=== PATIENT | male | born 1950 | race African-American/Black ===

== ENCOUNTER 2017-02-05 08:41 | Outpatient (CLI) | payer MEDICARE, MEDICAID ==
--- NOTE | 2017-02-05 09:44 | CT ---
CT LUMBAR SPINE: HISTORY: Lumbar radiculopathy, low back pain. History of prostate cancer. FINDINGS: Axial images are obtained with coronal and sagittal reconstructions. T11-12, T12-L1: Unremarkable. L1-2: There is mild facet hypertrophy. No significant degree of central or neural foraminal narrowi ng is seen. L2-3: Facet and ligamentum flavum hypertrophy is seen. The central canal and neural foramen are pat ent. No evidence of disk herniation seen. L3-4: Congenitally short pedicles are seen at this level. There is bilateral facet and ligamentum f lavum hypertrophy resulting in a moderate degree of central and lateral recess stenosis. L4-5: Disk desiccation is seen. There is a broad-based disk bulge with bilateral facet and ligament um flavum hypertrophy resulting in severe L4-5 central and lateral recess stenosis. Mild to moderate bilateral neural foraminal narrowing is seen. L5-S1: Vacuum disk changes seen at this level. There is a broad-based disk bulge. Central canal de monstrates a minimal but not significant degree of stenosis. Bilateral facet hypertrophy results in mild bilateral neural foraminal narrowing. IMPRESSION: L4-5 and L5-S1 broad-based disk bulges with the most significant degree of stenosis appearing to be a t the L3-4 and L4-5 levels. POS: [facility]
== END 2017-02-05 08:42 | disposition home or self-care (01) ==
LOC: CT 08:41
PROVIDERS: ATTEND Nurse Practitioner Family
DX: M51.16 Intervertebral disc disorders with radiculopathy, lumbar region (principal); M48.061 Spinal stenosis, lumbar region without neurogenic claudication
CPT/HCPCS: 72131

== ENCOUNTER 2017-02-08 19:13 | Emergency (ER) | payer MEDICARE, MEDICAID ==
[2017-02-08 19:59] LABS: #Monocytes 0.6 thou/uL (0.11-0.59); #Neutrophils 3.4 thou/uL (1.40-6.50); %Basophils 0.7 % (0.0-1.0); %Eosinophils 0.9 % (0.0-10.0); %Lymphocytes 19.4 % (21.0-51.0); %Monocytes 12.5 % (0.0-10.0); Hematocrit 36.1 % (42.0-52.0); Mean Platelet Volume 8.9 fL (7.4-10.4); Red Blood Cell (RBC) Count 4.41 mill/uL (4.70-6.10); White Blood Cell (WBC) Count 5.1 thou/uL (4.8-10.8)
[2017-02-08 20:16] LABS: ALT (SGPT) 13 U/L (8-55); AST (SGOT) 14 U/L (5-34); Alkaline Phosphatase 119 U/L (40-150); Anion Gap 11 mmol/L (10-20); BUN (Urea Nitrogen) 8 mg/dL (8.4-25.7); Bilirubin, Total 0.3 mg/dL (0.2-1.2); Calc. Creatinine Clearance 0 mL/min (70-130); Calcium 9.3 mg/dL (7.8-10.44); Carbon Dioxide 30 mmol/L (23-31); Chloride 102 mmol/L (98-107); Estimated GFR-MDRD Greater than 90; Globulin 3.5 g/dL (2.4-3.5); Protein, Total 7.2 g/dL (5.8-8.1)
--- NOTE | 2017-02-08 20:36 | ULT ---
RIGHT LOWER EXTREMITY VENOUS DOPPLER ULTRASOUND: 02/08/17 COMPARISON: None. HISTORY: Right leg pain, swelling, assess for DVT. TECHNIQUE: Multiplanar saxena scale sonographic imaging of the venous structures of the right lower extremity obta ined with color flow and spectral analysis. FINDINGS: Right common femoral vein, greater saphenous vein, profunda femoral vein, femoral vein, popliteal vei n, and posterior tibial vein are patent. There is normal blood flow, augmentation and compression wit hin the deep venous system of the right lower extremity. No evidence for right lower extremity DVT. IMPRESSION: No evidence for deep venous thrombosis of the right lower extremity. POS: [facility]
== END 2017-02-08 21:20 | disposition home or self-care (01) ==
LOC: ERS 19:13
DX: M79.89 Other specified soft tissue disorders (principal); I10 Essential (primary) hypertension; J44.9 Chronic obstructive pulmonary disease, unspecified; F17.210 Nicotine dependence, cigarettes, uncomplicated
CPT/HCPCS: 36415; 80053; 85025; 85379; 99406

== ENCOUNTER 2017-12-15 13:53 | Outpatient (CLI) | payer MEDICARE, MEDICAID ==
--- NOTE | 2017-12-15 15:39 | ULT ---
RIGHT LOWER EXTREMITY VENOUS DOPPLER ULTRASOUND EVALUATION: HISTORY: Right lower extremity edema. FINDINGS: Multiple longitudinal and transverse images of the right lower extremity venous system are obtained u sing a multihertz linear ray transducer. Real-time, color flow, and spectral waveform Doppler analys is demonstrate no evidence of acute or old clot seen in the right common femoral vein, superficial fe moral vein, femoral profunda, popliteal, posttrifurcation veins, posterior tibial vein, and right gre ater saphenous vein. IMPRESSION: No evidence of right lower extremity deep venous thrombosis. POS: [facility]
== END 2017-12-15 13:54 | disposition home or self-care (01) ==
LOC: SCSULT 13:53
PROVIDERS: ATTEND Nurse Practitioner Family
DX: R60.0 Localized edema (principal)

== ENCOUNTER 2018-02-16 11:42 | Emergency (ER) | payer MEDICARE, MEDICAID ==
[2018-02-16] MEDS ORDERED: HYDROcodone/Acetaminophen 10/325 mg Tablet ONE (13:17)
--- NOTE | 2018-02-16 13:49 | ULT ---
ULTRASOUND WITH DOPPLER DUPLEX VENOUS LOWER EXTREMITY LEFT: HISTORY: 67-year-old male with left lower extremity pain. TECHNIQUE: Color flow Doppler, spectral waveform analysis of pulsed Doppler, and saxena-scale imaging with asael eric and augmentation, were used to evaluate the left common femoral, femoral, popliteal, posterior t ibial, and superficial femoral, veins; and the proximal portions of the profunda femoral and greater saphenous, veins. FINDINGS: There is normal compressibility, demonstration of blood flow by color Doppler and pulsed Doppler, and response to augmentation, in all interrogated veins. IMPRESSION: Negative. No deep vein thrombosis in the left lower extremity. jn POS: [facility]
== END 2018-02-16 13:27 | disposition home or self-care (01) ==
LOC: ERS 11:42
DX: M54.32 Sciatica, left side (principal); I10 Essential (primary) hypertension; J44.9 Chronic obstructive pulmonary disease, unspecified; F17.210 Nicotine dependence, cigarettes, uncomplicated

== ENCOUNTER 2018-07-01 13:49 | Outpatient (CLI) | payer MEDICARE ==
--- NOTE | 2018-07-01 14:12 | RAD ---
2 views of the chest: 07/01/2018 COMPARISON: 09/15/2015 and 09/22/2012 HISTORY: Persistent severe reactive airways disease FINDINGS: There is mild increased linear interstitial density bilaterally, which is not significantly changed when compared to studies dating back to 09/22/2012. Heart and mediastinal contours are stable. There is no pneumothorax or pleural fluid in no focal cons olidation or alveolar edema. IMPRESSION: Chronic findings as above.
== END 2018-07-01 13:50 | disposition home or self-care (01) ==
LOC: BICRAD 13:49
PROVIDERS: ATTEND Internal Medicine
DX: J45.50 Severe persistent asthma, uncomplicated (principal); J98.4 Other disorders of lung
CPT/HCPCS: 71046

== ENCOUNTER 2019-02-01 11:34 | Emergency (ER) | payer MEDICARE, MEDICAID ==
[2019-02-01 12:38] LABS: #Basophils 0.1 thou/uL (0.0-0.2); #Eosinphils 0.1 thou/uL (0.0-0.7); #Lymphocytes 1.7 thou/uL (1.20-3.40); #Monocytes 0.7 thou/uL (0.11-0.59); #Neutrophils 2.9 thou/uL (1.40-6.50); %Eosinophils 1.8 % (0.0-10.0); %Lymphocytes 31.6 % (21.0-51.0); %Monocytes 12.2 % (0.0-10.0); %Neutrophils 53.4 % (42.0-75.0); Hemoglobin 14.9 g/dL (14.0-18.0); Mean Corpuscular HGB CONC 32.7 g/dL (32.0-36.0); Mean Corpuscular Hemoglobin 28.2 pg (27.0-31.0); Mean Platelet Volume 9.5 fL (7.4-10.4); Platelet Count 241 thou/uL (130-400); RBC Distribution Width 15.2 % (11.5-14.5); Red Blood Cell (RBC) Count 5.28 mill/uL (4.70-6.10); White Blood Cell (WBC) Count 5.5 thou/uL (4.8-10.8)
--- NOTE | 2019-02-01 13:04 | RAD ---
Chest AP view INDICATION: Left shoulder pain COMPARISON: Prior chest radiograph dated July 01, 2018 FINDINGS: Lungs:The lungs are clear Cardiac silhouette:The cardiomediastinal silhouette appears within normal limits. Pulmonary vasculature:Normal Pleural spaces:No pleural effusion or pneumothorax is demonstrated. Upper abdomen:No abnormality seen. Osseous structures: No acute osseous abnormality. Additional findings:None. IMPRESSION: No acute cardiopulmonary abnormality.
[2019-02-01 13:11] LABS: ALT (SGPT) 18 U/L (8-55); AST (SGOT) 16 U/L (5-34); Albumin 4.1 g/dL (3.4-4.8); Alkaline Phosphatase 130 U/L (40-110); Anion Gap 11 mmol/L (10-20); BUN (Urea Nitrogen) 8 mg/dL (8.4-25.7); Bilirubin, Total 0.5 mg/dL (0.2-1.2); Calc. Creatinine Clearance 0 mL/min (70-130); Calcium 9.5 mg/dL (7.8-10.44); Carbon Dioxide 25 mmol/L (23-31); Chloride 105 mmol/L (98-107); Estimated GFR-MDRD Greater than 90; Globulin 3.4 g/dL (2.4-3.5); Glucose 94 mg/dL (80-115); Lipase 112 U/L (8-78); Protein, Total 7.5 g/dL (5.8-8.1); Sodium 137 mmol/L (136-145)
--- NOTE | 2019-02-01 14:24 | CT ---
CT Cervical Spine WO Con Indication: Left shoulder pain and tingling for one month COMPARISON: None. FINDINGS: Fracture: None. Spinal alignment: There is straightening of the normal cervical lordosis. Craniocervical junction: Within normal limits. Vertebral body heights: Maintained. Cervical spine degenerative change: There is moderate multilevel spondylosis of the cervical spine. T here is a broad-based disc osteophyte complex at C6-C7 causing at least mild osseous central canal narrowing. Lung apices: Mild paraseptal emphysema. IMPRESSION: No acute osseous abnormality. Moderate multilevel cervical spondylosis. Mild paraseptal emphysema.
[2019-02-01] MEDS ORDERED: hydrALAZINE 20 MG/ML VIAL ONE (14:39)
[2019-02-01] MEDS ORDERED: HYDROcodone/Acetaminophen 5/325 mg Tablet ONE (14:52)
== END 2019-02-01 15:50 | disposition home or self-care (01) ==
LOC: ERS 11:34
DX: M54.12 Radiculopathy, cervical region (principal); I10 Essential (primary) hypertension; J44.9 Chronic obstructive pulmonary disease, unspecified; F17.210 Nicotine dependence, cigarettes, uncomplicated; Z79.899 Other long term (current) drug therapy
CPT/HCPCS: 36415; 71045; 72125; 80053; 83690; 84484; 85025; 93005; 94760; 96374; J0360

== ENCOUNTER 2019-03-01 19:35 | Emergency (ER) | payer MEDICARE, MEDICAID ==
[2019-03-01 20:57] LABS: #Basophils 0.1 thou/uL (0.0-0.2); #Eosinphils 0.1 thou/uL (0.0-0.7); #Monocytes 0.9 thou/uL (0.11-0.59); #Neutrophils 3.7 thou/uL (1.40-6.50); %Eosinophils 1.3 % (0.0-10.0); %Lymphocytes 29.5 % (21.0-51.0); %Monocytes 12.9 % (0.0-10.0); %Neutrophils 55.3 % (42.0-75.0); Hemoglobin 15.4 g/dL (14.0-18.0); Mean Corpuscular HGB CONC 31.9 g/dL (32.0-36.0); Mean Corpuscular Hemoglobin 27.5 pg (27.0-31.0); Mean Corpuscular Volume 86.1 fL (78.0-98.0); Mean Platelet Volume 9.1 fL (7.4-10.4); Platelet Count 265 thou/uL (130-400); RBC Distribution Width 15.4 % (11.5-14.5); Red Blood Cell (RBC) Count 5.59 mill/uL (4.70-6.10); White Blood Cell (WBC) Count 6.8 thou/uL (4.8-10.8)
[2019-03-01 21:22] LABS: ALT (SGPT) 25 U/L (8-55); AST (SGOT) 15 U/L (5-34); Albumin 4.2 g/dL (3.4-4.8); Alkaline Phosphatase 137 U/L (40-110); Anion Gap 9 mmol/L (10-20); BUN (Urea Nitrogen) 11 mg/dL (8.4-25.7); Bilirubin, Total 0.6 mg/dL (0.2-1.2); Calc. Creatinine Clearance 0 mL/min (70-130); Calcium 9.6 mg/dL (7.8-10.44); Carbon Dioxide 29 mmol/L (23-31); Chloride 101 mmol/L (98-107); Estimated GFR-MDRD Greater than 90; Globulin 3.6 g/dL (2.4-3.5); Glucose 109 mg/dL (80-115); Potassium 3.9 mmol/L (3.5-5.1); Protein, Total 7.8 g/dL (5.8-8.1); Sodium 135 mmol/L (136-145)
[2019-03-01] MEDS ORDERED: Ondansetron PF 4 MG/2 ML Vial ONE (22:08)
[2019-03-01] MEDS ORDERED: Morphine 4 MG/ML VIAL ONE (22:08)
[2019-03-01 22:34] LABS: Bilirubin Negative (Negative); Blood, Urine Negative (Negative); Clarity Clear (Clear); Glucose, Urine (Dipstick) Normal (Negative); Leukocyte Negative Leu/uL (Negative); Nitrite Negative (Negative); Protein, Urine (Dipstick) Negative (Neg-Trace); Urobilinogen Normal mg/dL (Less than 2)
--- NOTE | 2019-03-02 08:22 | ULT ---
PRELIMINARY REPORT/[facility]/AFTER HOURS PROCEDURE LIMITED RIGHT UPPER QUADRANT ABDOMINAL ULTRASOUND: CLINICAL HISTORY: RUQ pain, diarrhea. Colon surgery three yrs ago. TECHNIQUE: Real-time ultrasound of the right upper quadrant with image documentation. COMPARISON: None provided. FINDINGS: Evaluation is limited by the patient's body habitus. LIVER: Appears enlarged at 18.9 cm and demonstrates fatty infiltration. GALLBLADDER: No gallstone. No wall thickening. No pericholecystic fluid. Gallbladder sludge is noted with a positive sonographic Ralph sign. COMMON BILE DUCT: No dilation. Measures 2.5 mm. PANCREAS: Obscured by overlying bowel gas. RIGHT KIDNEY: Unremarkable. No hydronephrosis. Measures 12.3 cm. IMPRESSION: Gallbladder sludge with an enlarged fatty infiltrated liver. ELECTRONICALLY SIGNED BY: Jose R Chester MD Mar 02, 2019 12:29:18 AM [employer] This report is intended for review by the ordering physician only, in accordance of law. If you recei ve this report in error, please call [facility] at [phone]. FINAL REPORT GALLBLADDER ULTRASOUND: I agree with the preliminary report given by Dr. Jose R Chester of [facility]. CODE QA POS: [facility]
== END 2019-03-02 01:05 | disposition home or self-care (01) ==
LOC: ERS 19:35
DX: R10.11 Right upper quadrant pain (principal); J44.9 Chronic obstructive pulmonary disease, unspecified; F17.210 Nicotine dependence, cigarettes, uncomplicated; I10 Essential (primary) hypertension; Z79.899 Other long term (current) drug therapy
CPT/HCPCS: 36415; 76705; 80053; 81003; 83690; 85025; 96374; 96375; J2270; J2405

== ENCOUNTER 2019-10-06 12:33 | Outpatient (CLI) | payer MEDICARE, MEDICAID ==
--- NOTE | 2019-10-06 14:07 | MRI ---
MRI Cervical spine without contrast: HISTORY: Cervical radiculopathy. Patient is having chronic neck pain and numbness in left shoulder and arm. COMPARISON: None FINDINGS: The craniocervical junction is unremarkable. No significant cord signal abnormality. Paravertebral soft tissues have a normal appearance and normal signal intensity. Degenerative changes are seen in the cervical spine with endplate degenerative changes at the C2-3, C 4-5, and C6-7 levels. C1-2:No significant stenosis. C2-3: Loss of intervertebral disc height with broad-based disc osteophyte complex greater on the righ t with CT examination on 02/01/2019 demonstrating more prominent osteophyte formation centrally and paracentrally on the right. Findings result in narrowing of the central spinal canal with flattening of the anterior aspect of the spinal cord. Uncinate process hypertrophy is present on the left, and there is moderate to severe left-sided neural foraminal narrowing. The right neural foramen is patent .. C3-4: Disc osteophyte complex with central disc protrusion. This narrows the ventral subarachnoid spa ce with mass effect on the central aspect of the spinal cord. Mild right and mild to moderate left-sided neural foraminal narrowing is present. C4-5: Loss of intervertebral disc height with broad-based disc osteophyte complex. This narrows the v entral subarachnoid space with mild flattening of the anterior aspect of the spinal cord greater centrally. Moderate bilateral neural foraminal narrowing is present greater on the right. C5-6: Broad-based disc osteophyte complex with central disc protrusion. This narrows the ventral suba rachnoid space with mass effect on the central aspect of the spinal cord. Facet hypertrophic changes are present greater on the left. Moderate bilateral neural foraminal narrowing is present. C6-7: Loss of intervertebral disc height. Broad-based disc osteophyte complex is present with central disc protrusion. Narrowing of the ventral subarachnoid space with slight flattening of the anterior aspect of the spinal cord is present. Moderate bilateral neural foraminal narrowing is prese nt. C7-T1: Disc osteophyte complex with effacement of ventral subarachnoid space. Mild left and moderate to severe right-sided neural foraminal narrowing is present. IMPRESSION: Multilevel degenerative changes with neural foraminal narrowing at multiple levels.
== END 2019-10-06 12:34 | disposition home or self-care (01) ==
LOC: SCSMRI 12:33
PROVIDERS: ATTEND Neurological Surgery
DX: M47.22 Other spondylosis with radiculopathy, cervical region (principal); M48.02 Spinal stenosis, cervical region; M48.03 Spinal stenosis, cervicothoracic region
CPT/HCPCS: 72141